=== PATIENT | male | born 1960 | race African-American/Black ===

== ENCOUNTER 2020-09-25 17:49 | Observation (INO) | payer OTHER ==
[~2020-09-25] VITALS: Ht 165.1 cm; Wt 134.2 kg
[~2020-09-25 17:49] MED LIST: BROMOCRIPTINE2.5 M2 GT; HYDROCODONE-AP1 EAC6 PO; IBUPROFEN 600600 M1 PO; LEVOTHYROXIN0.088 MG PO; LIPITOR 20 MG T20 M1 PO; MOBIC15 MG PO; NORCO 5-325 TA1 EACH PO; NORFLEX100 MG PO; PREDNISONE 10 M10 MG PO
[2020-09-25 17:50] VITALS: BP 156/79
--- NOTE | 2020-09-25 18:49 | NUR ---
UNABLE TO DRAW BLOOD OR PLACE LINE, ATTEMPTED TWICE. IV TEAM PAGED FOR ASSISTANCE
[2020-09-25 20:12] LABS: HEMATOCRIT 38.7 % (42.0-52.0); HEMOGLOBIN 11.9 gm/dL (14.0-18.0); MCH 26.6 pg (26.0-34.0); MCHC 30.8 g/dL (28.0-37.0); MCV 86.2 fL (80.0-100.0); PLATELET COUNT 291 thou/uL (150-400); RDW 14.5 % (10.5-14.5); WBC 24.3 thou/uL (4.0-11.0)
--- NOTE | 2020-09-25 20:29 | NUR ---
lab at bedside to redraw.
[2020-09-25 21:07] LABS: APTT 31.9 Seconds (24.5-32.8); INR 1.1; PROTIME 12.2 Seconds (9.3-11.4)
[2020-09-25 21:16] LABS: ALBUMIN 2.9 g/dL (3.4-5.0); CALCIUM 8.3 mg/dL (8.5-10.1); CREATININE 1.1 mg/dL (0.7-1.3); POTASSIUM 3.7 mmol/L (3.5-5.1); TOTAL BILIRUBIN 1.1 mg/dL (0.2-1.0); TOTAL PROTEIN 7.1 g/dL (6.4-8.2)
[2020-09-25 21:17] LABS: URINE BILIRUBIN 1+ (Negative); URINE BLOOD 1+ (Negative); URINE CLARITY CLEAR; URINE COLOR YELLOW; URINE GLUCOSE-RANDOM* NEGATIVE (Negative); URINE KETONES NEGATIVE (Negative); URINE PROTEIN (DIPSTICK) TRACE (Negative)
[2020-09-25 21:44] LABS: ABSOLUTE NEUTROPHILS 19.2 thou/uL (1.4-8.2)
[2020-09-25 21:46] LABS: ANISOCYTOSIS 3+; HYPOCHROMASIA 2+; MICROCYTES 1+; POLYCHROMASIA 1+
[2020-09-25 21:51] LABS: URINE LEUKOCYTES-REFLEX 2+ (Negative); URINE NITRITE-REFLEX POSITIVE (Negative)
[2020-09-25 21:58] VITALS: BP 127/60
--- NOTE | 2020-09-25 21:58 | NUR ---
HANDOFF SENT TO [address] [place] [address]
[2020-09-25 22:04] LABS: CASTS None Seen /LPF (None Seen); URINE WBC-REFLEX 6-15 Few /HPF (0-5)
[2020-09-25 22:05] LABS: CRYSTALS None Seen /LPF (None Seen); URINE RBC 3-10 Few /HPF (0-2)
[2020-09-25 22:06] LABS: SQUAMOUS 0-3 Few /LPF (0-3)
[2020-09-25 22:30] VITALS: BP 127/60
[2020-09-25 23:08] VITALS: BP 186/58
[2020-09-26 00:45] VITALS: BP 165/51
[2020-09-26 04:45] VITALS: BP 154/62
--- NOTE | 2020-09-26 06:31 | NUR ---
PT ARRIVED TO THE UNIT AROUND 0. PT IS ALERT AND OREINTED X4. UP AD JODIE W/ STEADY GAIT. ST/SR ON THE MONITOR. NO COMPLAINTS OF PAIN OR DISTRESS. ADMISSION PROCESS COMPLETE. OREINTATED TO ROOM; PERSONAL ITEMS AT THE BEDSIDE. CONTINUNING TO ASSESS CLOSESLY ACCORDING TO POC.
[2020-09-26 07:30] VITALS: BP 152/71
[2020-09-26] MEDS ORDERED: KEFLEX500 M1 PO (11:04)
[2020-09-26 12:42] VITALS: BP 152/71
== END 2020-09-26 14:36 | disposition home or self-care (01) ==
LOC: ER 17:49 → 2N 21:52 → EROBS 21:52 → 2N 22:30
PROVIDERS: Emergency Medicine; ADMIT Hospitalist; ATTEND Hospitalist
DX: N39.0 Urinary tract infection, site not specified (principal); R50.9 Fever, unspecified; Z20.822 Contact with and (suspected) exposure to COVID-19; R51.9 Headache, unspecified; G47.33 Obstructive sleep apnea (adult) (pediatric); I89.0 Lymphedema, not elsewhere classified; E03.9 Hypothyroidism, unspecified; G89.29 Other chronic pain; E78.5 Hyperlipidemia, unspecified; Z90.89 Acquired absence of other organs; Z79.899 Other long term (current) drug therapy
CPT/HCPCS: 10081